=== PATIENT | male | born 1990 | race Caucasian/White ===

== ENCOUNTER 2017-09-08 18:36 | Emergency (ER) | payer SELFPAY ==
[2017-09-08 18:56] VITALS: BP 105/72
--- NOTE | 2017-09-08 19:24 | ER Report ---
History and Physical Time Seen By MD: 19:09 Hx. of Stated Complaint: PATIENT WAS OPENING BOX WITH KNIFE, HE ACCIDENTLY STABBED HIMSLE FIN THE LEFT HAND WITH KNIFE. HPI/ROS CHIEF COMPLAINT: Laceration HISTORY OF PRESENT ILLNESS: 26-year-old male patient presents to emergency room with complaint of laceration to the left hand. Patient states he was opening a box with a knife when the knife slipped and cut the webbing between the first and second finger. Patient states he has no numbness or tingling. He states he has no difficulty with movement. Patient did apply pressure using a t-shirt. He states that his last tetanus shot was in 2012. Allergies: Coded Allergies: No Known Drug Allergies (Unverified , 09/08/17) Home Meds Active Scripts Cephalexin 500 Mg Tab (KEFLEX 500 MG TAB) 500 Mg Tablet, 500 MG PO Q6H, #20 TAB Prov:DAVION GRECO CYBER ANALYST 09/08/17 Past Medical/Surgical History Patient denies any pertinent medical or surgical history. Reviewed Nurses Notes: Yes Constitutional Vital Sign - Last 24 Hours 09/08/17 18:56 Temp 97.9 Pulse 72 Resp 16 B/P (MAP) 105/72 Pulse Ox 92 O2 Delivery Room Air Physical Exam General appearance: Alert no distress. Respiratory: Chest is non tender, lungs are clear to auscultation. Cardiac: Regular rate and rhythm. Skin: Patient does have a laceration between first and second finger of the left hand. Measures approximately 2.5 cm. Does go into the subcutaneous tissue. Patient has good strength, range of motion with the thumb. On examination there is no tendon injury. DIFFERENTIAL DIAGNOSIS: After history and physical exam differential diagnosis was considered for laceration. Medical Decision Making ED Course/Re-evaluation ED Course Patient was admitted and examined, history and physical were obtained. Differential diagnoses were considered. On examination patient has a laceration between first finger. Does measure 2.5 cm. It does go into the subcutaneous tissue. The wound was anesthetized, cleaned and repaired described below. Patient tolerated repair well. The wound was cleaned, dressed. Patient will be discharge patient home. He is to follow-up in 7-10 days have sutures removed, he is to keep the wound dry for the next 48 hours. Patient will be placed on antibiotics due to the location of the wound. Patient verbalized understanding and agreement. Procedure: Laceration repair. Verbal consent was obtained from the patient. The 2.5 cm laceration on the webbing between the first and second fingers of the left hand was anesthetized in the usual fashion. The wound was scrubbed, draped and explored to its base with a gloved finger. There were no deep structures involved. No tendon injury was identified. The wound was repaired with 6 simple interrupted sutures using 5-0 Prolene material. The wound repair was simple. The procedure was performed by myself. Decision to Disposition Date: Sep 08, 2017 Decision to Disposition Time: 19:45 Depart Departure Latest Vital Signs Vital Signs Date Time Temp Pulse Resp B/P (MAP) Pulse Ox O2 Delivery O2 Flow Rate FiO2 09/08/17 18:56 97.9 72 16 105/72 92 Room Air Impression: Primary Impression: Laceration Condition: Improved Disposition: HOME OR SELF-CARE New Scripts Cephalexin 500 Mg Tab (KEFLEX 500 MG TAB) 500 Mg Tablet 500 MG PO Q6H, #20 TAB Prov: DAVION GRECO 09/08/17 Patient Instructions: Hand Laceration Additional Instructions: Keep wound dry for 48 hours. Follow up with your primary care provider in the next 7-10 days to have sutures removed. Monitor for signs of infection; redness, swelling, heat, discharge, increasing pain or red streaking. Take Tylenol or Ibuprofen as needed for pain. Return to the ER with any concerns. You may change dressing as needed. DAVION GRECO Sep 08, 2017 19:24
[2017-09-08] MEDS ORDERED: CEPH500T7 PO (19:44)
== END 2017-09-08 20:00 | disposition home or self-care (01) ==
LOC: ER 19:49
DX: S61.412A Laceration without foreign body of left hand, initial encounter (principal); W26.0XXA Contact with knife, initial encounter
CPT/HCPCS: 99283